=== PATIENT | male | born 1990 | race Caucasian/White ===

== ENCOUNTER 2019-08-23 16:48 | Emergency (ER) | payer OTHER ==
[~2019-08-23] VITALS: Ht 167.6 cm; Wt 95.3 kg
[2019-08-24] MEDS ORDERED: CEFADROXIL500 MG/5 M PO (05:51)
[2019-08-24] MEDS ORDERED: PEPCID40 MG PO (05:51)
[2019-08-24] MEDS ORDERED: LEVSIN/SL0.125 MG SL (05:51)
[2019-08-24] MEDS ORDERED: PHENERGAN25 MG PO (05:51)
== END 2019-08-24 06:20 | disposition home or self-care (01) ==
LOC: ER 16:48
DX: K29.60 Other gastritis without bleeding (principal); E86.0 Dehydration; N39.0 Urinary tract infection, site not specified; R79.81 Abnormal blood-gas level

== ENCOUNTER 2019-09-02 16:33 | Inpatient (IN) | payer OTHER ==
[~2019-09-02] VITALS: Ht 167.6 cm; Wt 83.0 kg
[~2019-09-02 16:33] MED LIST: CEFADROXIL500 MG/5 M PO; LEVSIN/SL0.125 MG SL; PEPCID40 MG PO; PHENERGAN25 MG PO
[2019-09-02] MEDS ORDERED: GLIPIZIDE XL5 MG (16:43)
[2019-09-02] MEDS ORDERED: METFORMIN HCL500 MG (16:43)
[2019-09-07] MEDS ORDERED: CARAFATE1 GM PO (11:36)
[2019-09-07] MEDS ORDERED: PEPCID AC20 MG PO (11:37)
== END 2019-09-07 17:39 | disposition home or self-care (01) | DRG 392 ==
LOC: ER 16:33 → SEC-K 09-03 09:49 → SURH 09-03 17:40
PROVIDERS: ADMIT Internal Medicine
PROC: 8E0ZXY6 Isolation (ICD-10-PCS; principal; 2019-09-03)
DX: K29.00 Acute gastritis without bleeding (principal); N39.0 Urinary tract infection, site not specified; R65.10 Systemic inflammatory response syndrome (SIRS) of non-infectious origin without acute organ dysfunction; E86.0 Dehydration; E87.8 Other disorders of electrolyte and fluid balance, not elsewhere classified; J11.1 Influenza due to unidentified influenza virus with other respiratory manifestations; E11.65 Type 2 diabetes mellitus with hyperglycemia; Z79.4 Long term (current) use of insulin

== ENCOUNTER → 2019-10-20 | Emergency (ER) | payer OTHER ==
[~2019-10-20] VITALS: Ht 172.7 cm; Wt 81.6 kg
[~2019-10-20] MED LIST changes: +CARAFATE1 GM PO; +GLIPIZIDE XL5 MG; +HUMALOG100 UNIT/2; +HUMULIN N100 UNIT/2; +METFORMIN HCL500 MG; +METOCLOPRAMIDE10 M1 PO; +PEPCID AC20 MG PO; +PREVACID30 MG PO
== END | disposition home or self-care (01) ==
LOC: ER 20:22
DX: K29.70 Gastritis, unspecified, without bleeding (principal)

== ENCOUNTER 2025-02-17 05:25 | Emergency (ER) | payer OTHER ==
[~2025-02-17] VITALS: Ht 167.6 cm; Wt 102.1 kg
[~2025-02-17 05:25] MED LIST changes: +LANTUS SOL100 UNIT/1 SQ; +MOUNJARO5 MG/0.5 M SQ; +ONDANSETRON ODT8 MG PO; +OSEL75CA PO; +TUSNEL LIQUID178 ML PO
[2025-02-17 05:40] VITALS: BP 108/72; O2SAT 100
[2025-02-17] MEDS ORDERED: ORPHENADRINE CITRATE 30 MG/ML AMPUL IM ONE (07:15)
[2025-02-17] MEDS ORDERED: KETOROLAC TROMETHAMINE 30 MG VIAL IM ONE (07:15)
[2025-02-17] MEDS ORDERED: ORPHENADRINE CITRATE 30 MG/ML AMPUL ONE (07:17)
[2025-02-17] MEDS ORDERED: KETOROLAC TROMETHAMINE 30 MG VIAL ONE (07:17)
[2025-02-17] MEDS ORDERED: KETO10TA2 PO (08:16)
[2025-02-17] MEDS ORDERED: ASPERCREME1 EACH TOP (08:16)
[2025-02-17] MEDS ORDERED: TIZANIDINE HCL4 M1 PO (08:16)
== END 2025-02-17 08:56 | disposition home or self-care (01) ==
LOC: ER 05:25
DX: M62.838 Other muscle spasm (principal); M54.2 Cervicalgia